=== PATIENT | female | born 1980 | race Two or more races ===

== ENCOUNTER 2021-05-21 23:19 | Emergency (ER) | payer OTHER ==
[~2021-05-21] VITALS: Ht 152.4 cm; Wt 65.8 kg
[2021-05-22] MEDS ORDERED: ULTRAM50 MG PO (03:23)
== END 2021-05-22 03:31 ==
LOC: ER 23:19
DX: S89.91XA Unspecified injury of right lower leg, initial encounter (principal)

== ENCOUNTER 2021-05-27 13:09 | Outpatient (CLI) | payer OTHER ==
[~2021-05-27 13:09] MED LIST: ULTRAM50 MG PO
== END 2021-05-27 13:16 | disposition home or self-care (01) ==
LOC: MRI 13:09
PROVIDERS: ATTEND General Practice
DX: S83.91XA Sprain of unspecified site of right knee, initial encounter (principal); S83.241A Other tear of medial meniscus, current injury, right knee, initial encounter
CPT/HCPCS: 73721

== ENCOUNTER 2021-07-05 01:37 | Emergency (ER) | payer OTHER ==
[~2021-07-05] VITALS: Ht 152.4 cm; Wt 65.8 kg
[2021-07-05] MEDS ORDERED: DOLOGESIC-DF 51 EACH PO (04:37)
== END 2021-07-05 04:43 ==
LOC: ER 01:37
DX: S83.91XA Sprain of unspecified site of right knee, initial encounter (principal); X58.XXXA Exposure to other specified factors, initial encounter; Y93.9 Activity, unspecified; Y92.9 Unspecified place or not applicable; Y99.9 Unspecified external cause status; Z88.6 Allergy status to analgesic agent

== ENCOUNTER 2021-07-17 07:46 | Outpatient (CLI) | payer OTHER ==
[~2021-07-17 07:46] MED LIST changes: +DOLOGESIC-DF 51 EACH PO
== END 2021-07-17 07:47 | disposition home or self-care (01) ==
LOC: NUCLEAR 07:46
PROVIDERS: ATTEND Orthopaedic Surgery
DX: S80.01XA Contusion of right knee, initial encounter (principal); Z88.6 Allergy status to analgesic agent
CPT/HCPCS: 78315; A9503

== ENCOUNTER → 2021-07-25 | Emergency (ER) | payer OTHER ==
[~2021-07-25] VITALS: Ht 152.4 cm; Wt 67.6 kg
[~2021-07-25] MED LIST changes: +MEDROLPACK PO; +TYLENOL
== END | disposition home or self-care (01) ==
LOC: ER 21:02
DX: S83.91XA Sprain of unspecified site of right knee, initial encounter (principal); X58.XXXA Exposure to other specified factors, initial encounter; Y93.9 Activity, unspecified; Y92.9 Unspecified place or not applicable; Y99.9 Unspecified external cause status; Z88.6 Allergy status to analgesic agent

== ENCOUNTER 2022-03-08 23:42 | Emergency (ER) | payer OTHER ==
[~2022-03-08] VITALS: Ht 157.5 cm; Wt 59.0 kg
[2022-03-09] MEDS ORDERED: DOLOGEN CAPLET1 EACH PO (01:01)
== END 2022-03-09 01:21 | disposition home or self-care (01) ==
LOC: ER 23:42
DX: M12.561 Traumatic arthropathy, right knee (principal); Z88.6 Allergy status to analgesic agent

== ENCOUNTER 2022-04-22 11:35 | Outpatient (CLI) | payer OTHER ==
[~2022-04-22 11:35] MED LIST changes: +DOLOGEN CAPLET1 EACH PO
== END 2022-04-22 12:00 | disposition home or self-care (01) ==
LOC: SONOGRAMA 11:35
DX: R92.2 Inconclusive mammogram (principal)

== ENCOUNTER 2022-08-28 01:50 | Emergency (ER) | payer OTHER ==
[~2022-08-28] VITALS: Ht 152.4 cm; Wt 68.0 kg
[2022-08-28] MEDS ORDERED: NEURONTIN300 MG (01:59)
[2022-08-28] MEDS ORDERED: BUDESONIDE0.5 MG/2 M IH (04:30)
[2022-08-28] MEDS ORDERED: ALBUTEROL2.5 MG/3 M IH (04:30)
[2022-08-28] MEDS ORDERED: ZYNCOF 20-400120 ML PO (04:30)
[2022-08-28] MEDS ORDERED: OSEL75CA PO (04:30)
== END 2022-08-28 04:37 ==
LOC: ER 01:50
DX: J10.1 Influenza due to other identified influenza virus with other respiratory manifestations (principal); R06.02 Shortness of breath; R53.81 Other malaise; R05.9 Cough, unspecified; R50.9 Fever, unspecified; Z88.6 Allergy status to analgesic agent; Z20.822 Contact with and (suspected) exposure to COVID-19

== ENCOUNTER 2023-02-20 18:57 | Emergency (ER) | payer OTHER ==
[~2023-02-20] VITALS: Ht 152.4 cm; Wt 67.6 kg
[~2023-02-20 18:57] MED LIST changes: +ALBUTEROL2.5 MG/3 M IH; +BUDESONIDE0.5 MG/2 M IH; +NEURONTIN300 MG; +OSEL75CA PO; +ZYNCOF 20-400120 ML PO
== END 2023-02-21 00:10 | disposition home or self-care (01) ==
LOC: ER 18:58
DX: M54.9 Dorsalgia, unspecified (principal); Z88.6 Allergy status to analgesic agent

== ENCOUNTER 2023-05-21 17:08 | Emergency (ER) | payer OTHER ==
[~2023-05-21] VITALS: Ht 152.4 cm; Wt 68.0 kg
[2023-05-21] MEDS ORDERED: CEFTRIAXONE SODIUM 1,000 MG VIAL IM STA (19:11)
[2023-05-21 20:01] LABS: HEMATOCRIT 36.6 % (36.0-45.00); HEMOGLOBIN 12.1 g/dL (12.0-15.00); MEAN CORPUSCULAR HEMOGLOBIN 29.8 pg (27.00-32.0); MEAN CORPUSCULAR HGB CONC 33.1 g/dl (32.0-36.0); PLATELET COUNT 332 K/uL (150-450); RED BLOOD COUNT 4.07 M/uL (4.00-6.00); RED CELL DISTRIBUTION WIDTH 12.8 % (11.5-14.5)
== END 2023-05-21 22:58 | disposition home or self-care (01) ==
LOC: ER 17:08
PROVIDERS: General Practice
DX: J06.9 Acute upper respiratory infection, unspecified (principal); Z88.6 Allergy status to analgesic agent; Z20.822 Contact with and (suspected) exposure to COVID-19

== ENCOUNTER 2024-08-10 09:42 | Emergency (ER) | payer OTHER ==
[~2024-08-10] VITALS: Ht 152.4 cm; Wt 73.0 kg
[2024-08-10] MEDS ORDERED: 8 HOUR650 MG PO (12:12)
[2024-08-10] MEDS ORDERED: BACLOFEN10 MG PO (12:12)
[2024-08-10] MEDS ORDERED: DEXAMETHASONE SODIUM PHOSPHATE 4 MG/ML VIAL IM ONE (12:15)
[2024-08-10] MEDS ORDERED: ORPHENADRINE CITRATE 30 MG/ML AMPUL IM ONE (12:15)
[2024-08-10] MEDS ORDERED: TRAMADOL HCL 50 MG TABLET PO ONE (12:15)
== END 2024-08-10 13:23 | disposition home or self-care (01) ==
LOC: ER 09:47
DX: M54.50 Low back pain, unspecified (principal); Z88.6 Allergy status to analgesic agent; Z87.09 Personal history of other diseases of the respiratory system